=== PATIENT | male | born 1945 | race Caucasian/White ===

== ENCOUNTER → 2020-04-23 18:45 | Outpatient (ROUT) | payer OTHER, SELFPAY ==
[2020-04-23 20:08] LABS: Add Manual Diff / Slide Review NO; Basophils Absolute Auto 100 /uL (0-100); Basophils Percent Auto 0.7 % (0-2); Eosinophils Absolute Auto 300 /uL (0-450); Eosinophils Percent Auto 4.2 % (2-4); Hematocrit 44.4 % (41-53); Hemoglobin 15.3 g/dL (13.5-17.5); Lymphocytes Absolute Auto 1400 /uL (1100-4500); Lymphocytes Percent Auto 18.8 % (25-40); Mean Corpuscular HGB Conc 34.4 % (30-36); Mean Corpuscular Hemoglobin 31.5 PG (26-34); Mean Corpuscular Volume 91.8 fL (80-100); Monocytes Absolute Auto 700 /uL (0-900); Monocytes Percent Auto 9.5 % (3-14); Neutrophils Absolute Auto 4800 /uL (1500-7000); Neutrophils Percent Auto 66.8 % (50-75); Platelet Count 176 X10^3/uL (150-400); Red Blood Cell Count 4.84 X10^6/uL (4.5-5.9); Red Cell Distribution Width 13.4 % (11.6-14.8); White Blood Cell Count 7.2 X10^3/uL (4.5-11.0)
[2020-04-23 20:13] LABS: Alanine Aminotransferase 27 IU/L (<50); Albumin 4.6 g/dL (3.5-5.0); Albumin Globulin Ratio 1.7 (1.0-2.8); Alkaline Phosphatase 119 U/L (38-126); Aspartate Aminotransferase 31 IU/L (17-59); BUN Creatinine Ratio 25.9 (6-22); Bilirubin Total 0.6 mg/dL (0.2-1.3); Blood Urea Nitrogen 22 mg/dL (9-20); Calcium 10.2 mg/dL (8.4-10.2); Carbon Dioxide 29 mmol/L (22-32); Chloride 105 mmol/L (98-107); Cholesterol 230 mg/dL (140-199); Estimated Glomerular Filt Rate > 60.0 mL/min (>60); Globulin 2.7 g/dL (1.7-4.1); Glucose 90 mg/dL (80-110); HDL Cholesterol 78 mg/dL (40-60); HEMOLYSIS < 15 (0-50); LDL Cholesterol Calculated 131 mg/dL (<100); Potassium 3.9 mmol/L (3.4-5.1); Sodium 139 mmol/L (137-145); Total Protein 7.3 g/dL (6.3-8.2); Triglycerides 107 mg/dL (35-150)
[2020-04-23 20:41] LABS: Prostate Specific Antigen 4.13 ng/mL (0.10-4.00)
[2020-04-23 20:51] LABS: TSH w/ Reflex to FT4 3.33 uIU/mL (0.47-4.68)
[2020-04-25 03:36] LABS: Carbamazepine Tegretol Level 8.9 ug/mL (4.0-12.0)
== END ==
PROVIDERS: Visit Provider Internal Medicine
DX: G40.802 Other epilepsy, not intractable, without status epilepticus (principal); E78.2 Mixed hyperlipidemia
CPT/HCPCS: 80053; 80061; 80156; 84153; 84443; 85025

== ENCOUNTER → 2021-03-18 13:16 | Outpatient (CLI) | payer OTHER, SELFPAY ==
[2021-03-18 16:31] LABS: COVID19 -Nasal RAPID Negative (Negative)
== END ==
PROVIDERS: Referring Provider Nurse Practitioner Family; Visit Provider Nurse Practitioner Family
DX: Z01.812 Encounter for preprocedural laboratory examination (principal); Z20.822 Contact with and (suspected) exposure to COVID-19
CPT/HCPCS: 87635; C9803

== ENCOUNTER 2021-03-20 10:24 | Day surgery (SDC) | payer OTHER, SELFPAY ==
[2021-03-20 11:00] VITALS: BP 170/75; PULSE 68; RESP 16; TEMP 36.8; O2SAT 96; BMI 32.5
[2021-03-20] MEDS: SODIUM CHLORIDE 0.9% 1,000 ML 84 ML IV (11:10)
--- NOTE | 2021-03-20 11:41 | PM.HP.1 ---
History of Present Illness History of Present Illness Date Patient Seen: 03/20/21 Chief complaint: SDC Narrative: History of colon polyps Patient History Medical History (Updated 03/20/21 @ 10:58 by Sharmin Del Cid RN) Right inguinal hernia Surgical History (Updated 03/20/21 @ 10:58 by Sharmin Del Cid RN) History of meniscectomy of right knee Hx of appendectomy Family & Social History Social History: household members spouse Tobacco & Substance use: Smoking Status Never smoker alcohol intake current alcohol intake frequency a few times a week Substance Use Type does not use Meds Home Medications and Allergies Home Medications Medication Instructions Recorded Confirmed Type Aspirin Child 81 mg PO DIRECTED 03/20/21 03/20/21 History carbamazepine 100 mg 100 mg PO DIRECTED 03/20/21 03/20/21 History tablet,extended release,12 hr ezetimibe 10 mg tablet 10 mg PO DIRECTED 03/20/21 03/20/21 History fluticasone propionate 50 50 mcg INTRANASAL DIRECTED 03/20/21 03/20/21 History mcg/actuation nasal spray,suspension losartan 50 mg-hydrochlorothiazide 50 tab PO DIRECTED 03/20/21 03/20/21 History 12.5 mg tablet rosuvastatin 5 mg tablet 5 mg PO DIRECTED 03/20/21 03/20/21 History tadalafil 5 mg tablet 5 mg PO DIRECTED 03/20/21 03/20/21 History tamsulosin 0.4 mg capsule 0.4 mg PO DIRECTED 03/20/21 03/20/21 History Allergies Allergy/AdvReac Type Severity Reaction Status Date / Time Sulfa (Sulfonamide Allergy Mild Rash Verified 03/20/21 10:46 Antibiotics) Penicillins AdvReac Unknown Verified 03/20/21 10:46 Exam Vital Signs (past 8 hours): - 03/20/21 11:00 Temperature 98.3 F Pulse Rate 68 Respiratory Rate 16 Blood Pressure 170/75 H Pulse Oximetry 96 Oxygen Delivery Method Room Air Narrative Exam Narrative: Oropharynx free of lesions Chest clear to auscultation percussion Cardiac exam reveals no S3 or murmur Assessment & Plan Assessment & Plan narrative: History of colon polyps need for follow-up colonoscopy. Risks, benefits, alternatives have been explained. Time Spent With Patient Critical Care time: I spent a total of [] minutes of critical care time on this patient's care today; this time is exclusive of procedural time.
--- NOTE | 2021-03-20 11:42 | PM.OP.COLON ---
Operative Date/Time/Diagnoses Date of procedure: 03/20/21 Pre-op diagnosis: See indication and findings Procedure & Clinicians Study performed: Colonoscopy Indications: History of colon polyps Surgeon: Shannan Haile Procedure Notes Procedure in detail: After informed consent was obtained patient was placed left lateral decubitus position. Video colonoscope was introduced the rectum slowly advanced cecum. On slow withdrawal mucosa was carefully examined. The scope was removed. The patient tolerated procedure well. Preparation was good. Blood loss none Complications none Sedation mac Findings 1. Normal colonoscopy to cecum Maldonado should have follow-up colonoscopy in 5 years.
[2021-03-20 12:00] VITALS: BP 96/52; PULSE 70; RESP 15; TEMP 37.1; O2SAT 94
[2021-03-20 12:09] VITALS: BP 139/71; PULSE 55; RESP 16; O2SAT 97
[2021-03-20 12:15] VITALS: BP 141/66; PULSE 57; RESP 16; TEMP 36.4; O2SAT 99
[2021-03-20 16:51] VITALS: BP 136/69; PULSE 58; RESP 16; TEMP 36.7; O2SAT 99
== END 2021-03-20 12:50 | disposition home or self-care (01) ==
PROVIDERS: PCP Internal Medicine; Referring Provider Internal Medicine Gastroenterology; Visit Provider Internal Medicine Gastroenterology
PROC: 0DJD8ZZ Inspection of Lower Intestinal Tract, Via Natural or Artificial Opening Endoscopic (ICD-10-PCS; CPT 45378; principal; 2021-03-20 11:30)
DX: Z12.11 Encounter for screening for malignant neoplasm of colon (principal); Z86.010 Personal history of colon polyps
CPT/HCPCS: G0105; J2704

== ENCOUNTER → 2022-01-30 15:59 | Outpatient (CLI) | payer OTHER, SELFPAY ==
[2022-01-30 16:56] LABS: Hematocrit 43.1 % (41-53); Hemoglobin 14.9 g/dL (13.5-17.5); Mean Corpuscular HGB Conc 34.5 % (30-36); Mean Corpuscular Hemoglobin 31.3 PG (26-34); Mean Corpuscular Volume 90.7 fL (80-100); Platelet Count 165 X10^3/uL (150-400); Red Blood Cell Count 4.75 X10^6/uL (4.5-5.9); Red Cell Distribution Width 13.4 % (11.6-14.8); White Blood Cell Count 5.7 X10^3/uL (4.5-11.0)
[2022-01-30 17:13] LABS: Alanine Aminotransferase 22 IU/L (<50); Albumin 4.3 g/dL (3.5-5.0); Albumin Globulin Ratio 1.5 (1.0-2.8); Alkaline Phosphatase 100 U/L (38-126); Aspartate Aminotransferase 29 IU/L (17-59); BUN Creatinine Ratio 22.9 (6-22); Bilirubin Total 0.7 mg/dL (0.2-1.3); Blood Urea Nitrogen 22 mg/dL (9-20); Calcium 9.7 mg/dL (8.4-10.2); Carbon Dioxide 32 mmol/L (22-32); Chloride 104 mmol/L (98-107); Cholesterol 277 mg/dL (140-199); Estimated Glomerular Filt Rate > 60 mL/min (>60); Globulin 2.9 g/dL (1.7-4.1); Glucose 96 mg/dL (80-110); HDL Cholesterol 78 mg/dL (40-60); HEMOLYSIS < 15 (0-50); LDL Cholesterol Calculated 188 mg/dL (<100); Potassium 4.1 mmol/L (3.4-5.1); Sodium 139 mmol/L (137-145); Total Protein 7.2 g/dL (6.3-8.2); Triglycerides 57 mg/dL (35-150)
[2022-01-30 17:43] LABS: Prostate Specific Antigen 6.15 ng/mL (0.10-4.00)
[2022-01-30 21:10] LABS: TSH w/ Reflex to FT4 1.75 uIU/mL (0.47-4.68)
[2022-01-31 08:33] LABS: Carbamazepine Tegretol Level 7.6 ug/mL (4.0-12.0)
== END ==
PROVIDERS: PCP Internal Medicine; Referring Provider Internal Medicine; Visit Provider Internal Medicine
DX: E78.2 Mixed hyperlipidemia (principal); I10 Essential (primary) hypertension; N40.1 Benign prostatic hyperplasia with lower urinary tract symptoms; G40.909 Epilepsy, unspecified, not intractable, without status epilepticus; I25.10 Atherosclerotic heart disease of native coronary artery without angina pectoris; N13.8 Other obstructive and reflux uropathy; G47.33 Obstructive sleep apnea (adult) (pediatric)
CPT/HCPCS: 36415; 80053; 80061; 80156; 84153; 84443; 85027; 99213

== ENCOUNTER → 2023-02-02 14:55 | Outpatient (CLI) | payer OTHER, SELFPAY ==
[2023-02-02 15:16] LABS: Hematocrit 43.5 % (41-53); Hemoglobin 14.9 g/dL (13.5-17.5); Mean Corpuscular HGB Conc 34.3 % (30-36); Mean Corpuscular Hemoglobin 31.4 PG (26-34); Mean Corpuscular Volume 91.4 fL (80-100); Platelet Count 177 X10^3/uL (150-400); Red Blood Cell Count 4.76 X10^6/uL (4.5-5.9); Red Cell Distribution Width 13.7 % (11.6-14.8); White Blood Cell Count 5.9 X10^3/uL (4.5-11.0)
[2023-02-02 15:46] LABS: Aspartate Aminotransferase 32 IU/L (17-59); BUN Creatinine Ratio 19.6 (6-22); Blood Urea Nitrogen 19 mg/dL (9-20); Calcium 10.3 mg/dL (8.4-10.2); Carbon Dioxide 28 mmol/L (22-32); Chloride 101 mmol/L (98-107); Cholesterol 240 mg/dL (140-199); Estimated Glomerular Filt Rate > 60 mL/min (>60); Glucose 100 mg/dL (80-110); HDL Cholesterol 95 mg/dL (40-60); HEMOLYSIS < 15 (0-50); LDL Cholesterol Calculated 129 mg/dL (<100); Potassium 3.7 mmol/L (3.4-5.1); Sodium 135 mmol/L (137-145); Triglycerides 79 mg/dL (35-150)
[2023-02-03 08:54] LABS: Carbamazepine Tegretol Level 8.7 ug/mL (4.0-12.0)
[2023-02-04 09:17] LABS: PSA Free % 26.8 % (.); PSA, Total 3.4 ng/mL (0.0-4.0)
== END ==
PROVIDERS: PCP Internal Medicine; Referring Provider Internal Medicine; Visit Provider Internal Medicine
DX: E78.2 Mixed hyperlipidemia (principal); I10 Essential (primary) hypertension; N13.8 Other obstructive and reflux uropathy; R97.20 Elevated prostate specific antigen [PSA]; G40.909 Epilepsy, unspecified, not intractable, without status epilepticus; N40.1 Benign prostatic hyperplasia with lower urinary tract symptoms
CPT/HCPCS: 36415; 80048; 80061; 80156; 84153; 84154; 84450; 85027

== ENCOUNTER → 2024-02-08 12:31 | Outpatient (CLI) | payer OTHER, SELFPAY ==
[2024-02-08 14:09] LABS: Hematocrit 42.4 % (41-53); Hemoglobin 14.5 g/dL (13.5-17.5); Mean Corpuscular HGB Conc 34.3 % (30-36); Mean Corpuscular Hemoglobin 31.5 PG (26-34); Platelet Count 180 X10^3/uL (150-400); White Blood Cell Count 6.4 X10^3/uL (4.5-11.0)
[2024-02-08 15:00] LABS: Alanine Aminotransferase 22 IU/L (<50); Albumin 4.3 g/dL (3.5-5.0); Alkaline Phosphatase 97 U/L (38-126); Aspartate Aminotransferase 27 IU/L (17-59); Bilirubin Total 0.7 mg/dL (0.2-1.3); Blood Urea Nitrogen 22 mg/dL (9-20); Calcium 10.4 mg/dL (8.4-10.2); Carbon Dioxide 27 mmol/L (22-32); Chloride 105 mmol/L (98-107); Cholesterol 224 mg/dL (140-199); Estimated Glomerular Filt Rate > 60 mL/min (>60); Globulin 2.2 g/dL (1.7-4.1); Glucose 93 mg/dL (80-110); HDL Cholesterol 90 mg/dL (40-60); HEMOLYSIS < 15 (0-50); LDL Cholesterol Calculated 120 mg/dL (<100); Potassium 4.2 mmol/L (3.4-5.1); Sodium 139 mmol/L (137-145); Total Protein 6.5 g/dL (6.3-8.2); Triglycerides 72 mg/dL (35-150)
[2024-02-09 04:10] LABS: Carbamazepine Tegretol Level 7.4 ug/mL (4.0-12.0)
== END ==
PROVIDERS: PCP Internal Medicine; Referring Provider Internal Medicine; Visit Provider Internal Medicine
DX: E78.2 Mixed hyperlipidemia (principal); N40.1 Benign prostatic hyperplasia with lower urinary tract symptoms; N13.8 Other obstructive and reflux uropathy; G40.909 Epilepsy, unspecified, not intractable, without status epilepticus
CPT/HCPCS: 36415; 80053; 80061; 80156; 84153; 85027

== ENCOUNTER → 2024-04-27 11:11 | Outpatient (CLI) | payer OTHER, SELFPAY ==
[2024-04-29 11:36] LABS: PSA Free % 21.1 % (.); PSA, Total 5.3 ng/mL (0.0-4.0)
== END ==
PROVIDERS: PCP Internal Medicine; Referring Provider Internal Medicine; Visit Provider Internal Medicine
DX: R97.20 Elevated prostate specific antigen [PSA] (principal); N40.1 Benign prostatic hyperplasia with lower urinary tract symptoms; N13.8 Other obstructive and reflux uropathy; N52.9 Male erectile dysfunction, unspecified
CPT/HCPCS: 36415; 84153; 84154